=== PATIENT | male | born 1940 | race Caucasian/White ===

== ENCOUNTER 2018-02-06 13:16 | Emergency (ER) | payer MEDICARE ==
[2018-02-06 13:39] VITALS: BP 145/74
[2018-02-06] MEDS ORDERED: Lidocaine 1%* 5 ML VIAL INJ ONE (13:44)
--- NOTE | 2018-02-06 13:58 | ED ---
Laceration/Wound HPI - HPI Summary HPI Summary: 77M presents with right middle and index finger laceration today. He placed finger in a potato pluck trimmer. His last tetanus was a year ago. He is currently on Augmentin for an ear infection with his last dose last night. he takes a baby aspirin otherwise not on any blood thinners. Area continues to actively bleed. Pain is greatest in his right index finger. He has full range of motion his fingers. No numbness or tingling. no previous fracture to the area. is not diabetic. is right handed. - History of Current Complaint Pain Intensity: 2 - Additional Pertinent History Primary Care Physician: [id number] <Lizbeth Sparks - Last Filed: 02/06/18 15:18> <Kimi Khan - Last Filed: 02/06/18 18:11> - History of Current Complaint Stated Complaint: FINGER LAC Time Seen by Provider: 02/06/18 13:34 - Allergy/Home Medications Allergies/Adverse Reactions: Allergies Allergy/AdvReac Type Severity Reaction Status Date / Time No Known Allergies Allergy Verified 02/06/18 13:40 Home Medications: Home Medications Amoxicillin/Clavulanate TAB* [Augmentin TAB 875*] 1 tab PO BID 02/06/18 [ History Confirmed 02/06/18] Neomycin/Polymyxin B/Hydrocort [[id number]-Xl Ear Susp] 02/06/18 [ History] PMH/Surg Hx/FS Hx/Imm Hx Endocrine/Hematology History: Denies: Hx Anticoagulant Therapy Cardiovascular History: Reports: Hx Hypertension GI History: Reports: Hx Ulcer, Other GI Disorders - Hx of colon polyps History: Reports: Other Problems/Disorders - difficulty urinating admission Neurological History: Reports: Other Neuro Impairments/Disorders - orbital fx - diplopia/blurry vision - Surgical History Surgery Procedure, Year, and Place: [facility], [facility] Infectious Disease History: No Infectious Disease History: Denies: Traveled Outside the [place] in Last 30 Days - Family History Known Family History: Positive: Cardiac Disease - Sister - Social History Alcohol Use: Rare Substance Use Type: Reports: None Hx Tobacco Use: No Smoking Status (MU): Former Smoker <Lizbeth Sparks - Last Filed: 02/06/18 15:18> Review of Systems Negative: Fever Negative: Chest Pain Negative: Shortness Of Breath Positive: Other - finger laceration 2-3 right finger All Other Systems Reviewed And Are Negative: Yes <Lizbeth Sparks - Last Filed: 02/06/18 15:18> Physical Exam Triage Information Reviewed: Yes Vital Signs On Initial Exam: Initial Vitals Temp Pulse Resp BP Pulse Ox 98.5 F 63 20 145/74 97 02/06/18 13:35 02/06/18 13:35 02/06/18 13:35 02/06/18 13:35 02/06/18 13:35 Vital Signs Reviewed: Yes Appearance: Positive: Well-Appearing Skin: Positive: Warm, Dry, Other - 4cm by 1/2cm laceration of right middle finger distal phlanx, 1/2cm lac near end of nailbed right middle finger, multiple abrasion and lacerations next to each other on pad of right index finger 4cm by 3cm covering area Head/Face: Positive: Normal Head/Face Inspection Eyes: Positive: Normal, Conjunctiva Clear Respiratory/Lung Sounds: Positive: Clear to Auscultation, Breath Sounds Present Cardiovascular: Positive: Normal, RRR Musculoskeletal: Positive: Strength/ROM Intact - right hand, Other - good pulses , capillary refill<2 secs Neurological: Positive: Normal Psychiatric: Positive: Normal <Lizbeth Sparks - Last Filed: 02/06/18 15:18> Vital Signs On Initial Exam: Initial Vitals Temp Pulse Resp BP Pulse Ox 98.5 F 63 20 145/74 97 02/06/18 13:35 02/06/18 13:35 02/06/18 13:35 02/06/18 13:35 02/06/18 13:35 <Kimi Khan - Last Filed: 02/06/18 18:11> Procedures - Laceration/Wound Repair 1 Location: Other - right middle finger Description: Irregular Anesthesia: Digital, 1.0% Length, Depth and Shape: 4cm by 1/2cm middle distal phalanx, 1cm superficial near end of nail Irrigated w/ Saline (ccs): 1,000 Closure: Single Layer Suture Type: Prolene Number of Sutures: 5 Layer Closure?: No Sterile Dressing Applied?: Yes - telfa and coband to index finger 2 Location: Other - right index finger Description: Irregular Anesthesia: Digital, 1.0% Length, Depth and Shape: 4cm by 3cm area with 5 laceration next to each other and avulsions to the subq Irrigated w/ Saline (ccs): 1,000 Laceration/Wound Explored: no foreign body removed Closure: Single Layer Suture Type: Prolene - 4-0 Number of Sutures: 14 Layer Closure?: No Sterile Dressing Applied?: Yes - xeroform, guaze, telfa, and coband to 3rd finger <Lizbeth Sparks - Last Filed: 02/06/18 15:18> Diagnostics - Vital Signs Vital Signs Temp Pulse Resp BP Pulse Ox 02/06/18 13:35 98.5 F 63 20 145/74 97 - Radiology hand Xray Interpretation: Positive (See Comments) - IMPRESSION: Nondisplaced fracture at the tuft of the second distal phalanx. Negative for additional fracture or articular malalignment. Soft tissue swelling and subcutaneous emphysema at the second and third fingers. No compelling conspicuous foreign body however presence of gauze/bandage limits assessment. Radiology Interpretation Completed By: Radiologist <Lizbeth Sparks - Last Filed: 02/06/18 15:18> - Vital Signs Vital Signs Temp Pulse Resp BP Pulse Ox 02/06/18 13:35 98.5 F 63 20 145/74 97 <Kimi Khan - Last Filed: 02/06/18 18:11> Laceration Repair Course/Dx - Course Course Of Treatment: 77M presents with right middle and index finger laceration today. He placed finger in a potato pluck trimmer. His last tetanus was a year ago. He is currently on Augmentin for an ear infection with his last dose last night. he takes a baby aspirin otherwise not on any blood thinners. Area continues to actively bleed. Pain is greatest in his right index finger. He has full range of motion his fingers. No numbness or tingling. no previous fracture to the area. is not diabetic. is right handed. on exam has 4cm by 1 /2cm laceration of right middle finger distal phlanx that cleaned and placed 4 sutures in, 1/2cm lac near end of nailbed right middle finger that placed a stich in, multiple abrasion and lacerations (5 skin faps) next to each other on pad of right index finger 4cm by 3cm that cleaned and placed 4 sutures in. x- ray shows a tuft fracture. placed in pressure dressing as area was not able to be reapproximated completely. Gave the Keflex as patient just finished a course of Augmentin. Will have follow-up with orthopedic. patient has dx of htn that can follow up with primary about as has htn blood pressure at this visit. Patient understands agrees with plan. - Differential Dx Differental Diagnoses: Abrasion, Avulsion, Laceration <Lizbeth Sparks - Last Filed: 02/06/18 15:18> <Kimi Khan - Last Filed: 02/06/18 18:11> - Clinical Impression Provider Diagnoses: Open fracture of tuft of distal phalanx of finger, Complicated laceration of finger, Hypertension Discharge - Sign-Out/Discharge Documenting (check all that apply): Discharge/Admit/Transfer - Billing Disposition and Condition Condition: GOOD Disposition: Home <Lizbeth Sparks - Last Filed: 02/06/18 15:18> - Billing Disposition and Condition Condition: GOOD Disposition: Home <Kimi Khan - Last Filed: 02/06/18 18:11> - Discharge Plan Condition: Good Disposition: HOME Prescriptions: Cephalexin CAP* [Keflex CAP*] 500 mg PO BID #10 cap Patient Education Materials: Care For Your Stitches (ED), Finger Fracture (ED) Referrals: Luis Sosa MD [Primary Care Provider] - Sixto Salguero MD [Medical Doctor] - Additional Instructions: Keep area taped together, change dressing once a day starting Saturday Keep area clean and dry for 48 hours, first time change dressing yellow xeroform first then gauze then coband Take Tylenol or ibuprofen for pain every 6 hours elevate area Follow up with ortho Take keflex twice a day for 5 days Return to ED or primary for suture removal in 10-14 days Return to ED if develop signs of infection such as fever, spreading redness, or pus formation Attestation Statement User Type: Provider - I was available for consult. This patient was seen by the [facility]. The patient was not presented to, seen by, or examined by me. -Sabiha <Kimi Khan - Last Filed: 02/06/18 18:11>
--- NOTE | 2018-02-06 14:09 | RAD ---
INDICATION: RIGHT hand injury; laceration at the index and middle fingers. COMPARISON: No relevant prior exams available on the [facility] PACS for comparison. TECHNIQUE: AP, lateral, and oblique views RIGHT hand. REPORT: Bone density appears decreased throughout. Nondisplaced fracture at the tuft of the second distal phalanx. Negative for additional fracture or articular malalignment. Soft tissue swelling and subcutaneous emphysema at the second and third fingers. No compelling conspicuous foreign body however presence of gauze/bandage limits assessment. 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 At the metacarpal phalangeal joints and interphalangeal joints with relative paucity of osteophytosis as well as presence of periarticular osteopenia suspicious for inflammatory arthropathy. At the carpus there is more typical degenerative arthropathy most marked at the scaphoid trapezium and trapezium first metacarpal articulations were is advanced. Ulnar plus variance. 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 IMPRESSION: Nondisplaced fracture at the tuft of the second distal phalanx. Negative for additional fracture or articular malalignment. Soft tissue swelling and subcutaneous emphysema at the second and third fingers. No compelling conspicuous foreign body however presence of gauze/bandage limits assessment.
[2018-02-06] MEDS ORDERED: Lidocaine 1%* 5 ML VIAL ONE (14:22)
[2018-02-06] MEDS ORDERED: Cephalexin CAP* 500 MG PO ONE (14:22)
== END 2018-02-06 15:20 | disposition home or self-care (01) ==
LOC: UCEAST 13:16
DX: S62.660B Nondisplaced fracture of distal phalanx of right index finger, initial encounter for open fracture (principal); S61.210A Laceration without foreign body of right index finger without damage to nail, initial encounter; S61.212A Laceration without foreign body of right middle finger without damage to nail, initial encounter; I10 Essential (primary) hypertension; Z87.891 Personal history of nicotine dependence; H66.90 Otitis media, unspecified, unspecified ear; Z79.82 Long term (current) use of aspirin; W45.8XXA Other foreign body or object entering through skin, initial encounter; Y92.9 Unspecified place or not applicable
CPT/HCPCS: 12002; 99212; G0463

== ENCOUNTER 2020-08-19 13:31 | Inpatient (IN) ==
[2020-08-19 15:03] LABS: ABS Eosinophils 0.2 10^3/ul (0-0.6); ABS Lymphocytes 0.4 10^3/ul (1.0-4.8); ABS Monocytes 0.5 10^3/ul (0-0.8); ABS Neutrophils 7.1 10^3/ul (1.5-7.7); Eosinophil % 2.3 %; Hematocrit 33 % (42-52); Hemoglobin 11.3 g/dL (14.0-18.0); Lymphocyte % 5.4 %; Mean Corpuscular HGB Conc 34 g/dL (31-36); Mean Corpuscular Hemoglobin 31 pg (27-31); Mean Corpuscular Volume 91 fL (80-94); Mean Platelet Volume 6.9 fL (7.4-10.4); Platelet Count 286 10^3/uL (150-450); Red Blood Count 3.63 10^6 /uL (4.18-5.48); Red Cell Distribution Width 14 % (10-15); White Blood Count 8.3 10^3/uL (3.5-10.8)
[2020-08-19 15:17] LABS: INR 1.03 (0.82-1.09)
[2020-08-19 15:24] LABS: ALT 22 U/L (7-52); AST 24 U/L (13-39); Albumin 4.1 g/dL (3.2-5.2); Albumin/Globulin Ratio 1.5 (1-3); Alkaline Phosphatase 69 U/L (34-104); Anion Gap 7 mmol/L (2-11); BUN/Creatinine Ratio 25.7 (8-20); Blood Urea Nitrogen 28 mg/dL (6-24); CO2 Carbon Dioxide 24 mmol/L (22-32); Calcium 9.5 mg/dL (8.6-10.3); Chloride 107 mmol/L (101-111); EGFR African American 79.2 (>60); EGFR Non-African American 65.4 (>60); Globulin 2.7 g/dL (2-4); Glucose 101 mg/dL (70-100); Potassium 4.1 mmol/L (3.5-5.0); Sodium 138 mmol/L (135-145); Total Protein 6.8 g/dL (6.4-8.9)
[2020-08-19] MEDS ORDERED: Magnesium Hydroxide LIQ 30 ML UDC PO PRN (15:39)
[2020-08-19] MEDS ORDERED: Enoxaparin 40 MG/0.4 ML SYR SUBCUT ONE (15:46)
[2020-08-19] MEDS ORDERED: Senna TAB 8.6 mg TAB PO PRN (15:46)
[2020-08-19] MEDS ORDERED: Lactated Ringers 1000 ml BAG 1,000 ML IV ONE (16:04)
[2020-08-19 16:34] LABS: % Iron Saturation 13 % (15-55); Iron 58 ug/dL (50-212); Total Iron Binding Capacity 438 mcg/dL (250-450); Transferrin 313 mg/dL (203-362); Unsaturated Iron Binding < 423 ug/dL
[2020-08-19 16:56] LABS: Ferritin 17.9 ng/mL (24-336)
[2020-08-19 16:59] LABS: Folate 16.72 ng/mL (>3.99)
[2020-08-19 17:00] LABS: Vitamin B12 179 pg/mL (180-914)
[2020-08-19] MEDS ORDERED: Cyanocobalamin INJ 1,000 MCG/ML VIAL 1 ML VIAL IM ONE (18:19)
[2020-08-19] MEDS ORDERED: Iron Sucrose 20 MG/ML 5 ML VIAL IV PUSH ONE (18:19)
[2020-08-19 18:44] LABS: Magnesium 2.1 mg/dL (1.9-2.7)
[2020-08-19] MEDS ORDERED: Iron Sucrose 200 MG in NS 0.9% 100 ml IVPB ONE (21:30)
[2020-08-19] MEDS: NS 0.9% 1000 ml BAG 1,000 ML IV SCH (22:19)
[2020-08-20 11:10] LABS: BUN/Creatinine Ratio 26.6 (8-20); Calcium 8.9 mg/dL (8.6-10.3); EGFR African American 93.9 (>60); EGFR Non-African American 77.6 (>60); Magnesium 1.9 mg/dL (1.9-2.7); Potassium 3.8 mmol/L (3.5-5.0)
[2020-08-20 11:39] LABS: Vitamin D Total 25(OH) 23.9 ng/mL (20-50)
[2020-08-20] MEDS ORDERED: ceFAZolin 2 GM PREMIX 2 GM/50 ML BAG ONE (15:01)
[2020-08-20] MEDS ORDERED: Propofol 10 mg/ml 100 ML BTL 100 ML ONE (15:41)
[2020-08-20] MEDS ORDERED: Lidocaine 2% PF 5 ML VIAL ONE (15:49)
[2020-08-20] MEDS ORDERED: Bupivacaine 0.5% SDV PF 30ML VIAL ONE ×2 (15:56→18:08)
[2020-08-20] MEDS ORDERED: Rocuronium 50 mg VIAL 10 mg/ml 5 ml VIAL (50 mg) ONE (16:57)
[2020-08-20] MEDS ORDERED: HYDROmorphone 1 MG/1 ML SYRINGE ONE (17:03)
[2020-08-20] MEDS ORDERED: Propofol 10 MG/ML 20 ML BTL ONE (17:59)
[2020-08-20] MEDS ORDERED: Lidocaine 1% w EPI 1:200,000 SDV 30 ML VIAL ONE (18:08)
[2020-08-20] MEDS ORDERED: Naloxone 0.4 mg VIAL 0.4 mg/ml 1 ml VIAL IV PRN (18:30)
[2020-08-20] MEDS ORDERED: Ondansetron 4 mg VIAL 2 MG/ML 2 ml VIAL IV PRN (18:30)
[2020-08-20] MEDS ORDERED: HYDROmorphone 1 MG/1 ML SYRINGE IV PRN (18:30)
[2020-08-20] MEDS: NS 0.9% 1000 ml BAG 1,000 ML IV SCH (20:31)
[2020-08-20] MEDS: Cholecalciferol (VIT D3) 1,000 unit TAB PO SCH (21:26)
[2020-08-20] MEDS: Multivitamins/Minerals TAB PO SCH (21:26)
[2020-08-21 09:35] LABS: Hematocrit 29 % (42-52); Hemoglobin 9.8 g/dL (14.0-18.0); Mean Corpuscular HGB Conc 34 g/dL (31-36); Mean Corpuscular Hemoglobin 31 pg (27-31); Mean Corpuscular Volume 92 fL (80-94); Mean Platelet Volume 7.5 fL (7.4-10.4); Platelet Count 219 10^3/uL (150-450); Red Blood Count 3.14 10^6 /uL (4.18-5.48); Red Cell Distribution Width 14 % (10-15); White Blood Count 8.1 10^3/uL (3.5-10.8)
[2020-08-21 09:46] LABS: BUN/Creatinine Ratio 23.2 (8-20); EGFR African American 92.8 (>60); EGFR Non-African American 76.7 (>60); Magnesium 1.8 mg/dL (1.9-2.7)
[2020-08-21] MEDS ORDERED: Magnesium Sulfate IV 1GM/100ML 1 GM/100 ML BAG IV ONE (09:48)
[2020-08-21] MEDS ORDERED: Polyethylene Glycol 3350 17 GM PACKET PO PRN (12:02)
[2020-08-21] MEDS: ceFAZolin 1 GM ADVAN 1 GM in NS 0.9% 50 ML 50 ML IVPB SCH ×2 (16:09→21:15)
[2020-08-21] MEDS: Multivitamins/Minerals TAB PO SCH (16:30)
[2020-08-21] MEDS: Cholecalciferol (VIT D3) 1,000 unit TAB PO SCH (16:30)
[2020-08-22] MEDS: ceFAZolin 1 GM ADVAN 1 GM in NS 0.9% 50 ML 50 ML IVPB SCH (05:17)
[2020-08-22 11:03] LABS: ABS Eosinophils 0.1 10^3/ul (0-0.6); ABS Lymphocytes 0.6 10^3/ul (1.0-4.8); ABS Monocytes 0.8 10^3/ul (0-0.8); ABS Neutrophils 5.8 10^3/ul (1.5-7.7); Eosinophil % 1.4 %; Hematocrit 28 % (42-52); Hemoglobin 9.2 g/dL (14.0-18.0); Lymphocyte % 8.4 %; Mean Corpuscular HGB Conc 33 g/dL (31-36); Mean Corpuscular Hemoglobin 31 pg (27-31); Mean Corpuscular Volume 93 fL (80-94); Platelet Count 213 10^3/uL (150-450); Red Blood Count 2.96 10^6 /uL (4.18-5.48); Red Cell Distribution Width 15 % (10-15); White Blood Count 7.4 10^3/uL (3.5-10.8)
[2020-08-22 11:24] LABS: BUN/Creatinine Ratio 27.8 (8-20); EGFR African American 98.7 (>60); EGFR Non-African American 81.6 (>60); Magnesium 1.9 mg/dL (1.9-2.7); Potassium 3.6 mmol/L (3.5-5.0)
[2020-08-22] MEDS ORDERED: Remdesivir 5 MG/ML LIQ IV Vial 200 MG in NS 0.9% 250 ml 210 ML IV ONE (16:00)
[2020-08-22] MEDS: Cholecalciferol (VIT D3) 1,000 unit TAB PO SCH (16:40)
[2020-08-22] MEDS: Multivitamins/Minerals TAB PO SCH (16:40)
[2020-08-23 06:46] LABS: ABS Lymphocytes 0.6 10^3/ul (1.0-4.8); ABS Monocytes 0.6 10^3/ul (0-0.8); ABS Neutrophils 6.6 10^3/ul (1.5-7.7); Hematocrit 27 % (42-52); Hemoglobin 9.2 g/dL (14.0-18.0); Lymphocyte % 7.3 %; Mean Corpuscular HGB Conc 34 g/dL (31-36); Mean Corpuscular Hemoglobin 31 pg (27-31); Mean Corpuscular Volume 92 fL (80-94); Platelet Count 226 10^3/uL (150-450); Red Blood Count 2.94 10^6 /uL (4.18-5.48); Red Cell Distribution Width 14 % (10-15); White Blood Count 7.8 10^3/uL (3.5-10.8)
[2020-08-23 07:12] LABS: Albumin 3.2 g/dL (3.2-5.2); Albumin/Globulin Ratio 1.3 (1-3); BUN/Creatinine Ratio 31.7 (8-20); Calcium 9.1 mg/dL (8.6-10.3); EGFR African American 109.9 (>60); EGFR Non-African American 90.9 (>60); Globulin 2.5 g/dL (2-4); Magnesium 1.9 mg/dL (1.9-2.7); Potassium 4.4 mmol/L (3.5-5.0); Total Bilirubin 0.7 mg/dL (0.2-1.0); Total Protein 5.7 g/dL (6.4-8.9)
[2020-08-23 15:21] VITALS: BP 116/64
[2020-08-23] MEDS ORDERED: Remdesivir 5 MG/ML LIQ IV Vial 100 MG in NS 0.9% 250 ml 230 ML IV SCH (15:30)
[2020-08-23] MEDS: Multivitamins/Minerals TAB PO SCH (16:56)
[2020-08-23] MEDS: Cholecalciferol (VIT D3) 1,000 unit TAB PO SCH (16:57)
== END 2020-08-23 10:00 | DRG 480 ==
LOC: ED 13:31 → SSU 18:29 → MED 08-20 06:22
PROVIDERS: ADMIT Internal Medicine; ATTEND Internal Medicine

== ENCOUNTER 2020-08-23 08:03 | Inpatient (IN) ==
[2020-08-23] MEDS ORDERED: Magnesium Hydroxide LIQ 30 ML UDC PO PRN (17:25)
[2020-08-23] MEDS ORDERED: Senna TAB 8.6 mg TAB PO PRN (17:25)
[2020-08-24 07:05] LABS: ABS Eosinophils 0.1 10^3/ul (0-0.6); ABS Monocytes 0.5 10^3/ul (0-0.8); ABS Neutrophils 6.1 10^3/ul (1.5-7.7); Eosinophil % 1.4 %; Hematocrit 27 % (42-52); Lymphocyte % 13.1 %; Mean Corpuscular HGB Conc 34 g/dL (31-36); Mean Corpuscular Hemoglobin 31 pg (27-31); Mean Corpuscular Volume 92 fL (80-94); Mean Platelet Volume 6.9 fL (7.4-10.4); Platelet Count 263 10^3/uL (150-450); Red Blood Count 2.92 10^6 /uL (4.18-5.48); Red Cell Distribution Width 14 % (10-15); White Blood Count 7.8 10^3/uL (3.5-10.8)
[2020-08-24 07:27] LABS: Albumin 3.2 g/dL (3.2-5.2); Albumin/Globulin Ratio 1.3 (1-3); BUN/Creatinine Ratio 37.5 (8-20); Calcium 9.3 mg/dL (8.6-10.3); EGFR African American 101.3 (>60); EGFR Non-African American 83.8 (>60); Globulin 2.4 g/dL (2-4); Total Bilirubin 0.9 mg/dL (0.2-1.0); Total Protein 5.6 g/dL (6.4-8.9)
[2020-08-24] MEDS: Senna TAB 8.6 mg TAB PO SCH (21:42)
[2020-08-24] MEDS: Remdesivir 5 MG/ML LIQ IV Vial 100 MG in NS 0.9% 250 ml 230 ML IV SCH (21:43)
[2020-08-25] MEDS ORDERED: Magnesium Hydroxide LIQ 30 ML UDC PO ONE (13:00)
[2020-08-25] MEDS: Remdesivir 5 MG/ML LIQ IV Vial 100 MG in NS 0.9% 250 ml 230 ML IV SCH (21:50)
[2020-08-25] MEDS: Senna TAB 8.6 mg TAB PO SCH (21:51)
[2020-08-26] MEDS: Polyethylene Glycol 3350 17 GM PACKET PO SCH (08:39)
[2020-08-26] MEDS: Remdesivir 5 MG/ML LIQ IV Vial 100 MG in NS 0.9% 250 ml 230 ML IV SCH (21:50)
[2020-08-26] MEDS: Senna TAB 8.6 mg TAB PO SCH (21:52)
[2020-08-27] MEDS: Polyethylene Glycol 3350 17 GM PACKET PO SCH (09:03)
[2020-08-27] MEDS: Senna TAB 8.6 mg TAB PO SCH (21:05)
[2020-08-28] MEDS: Polyethylene Glycol 3350 17 GM PACKET PO SCH (08:07)
[2020-08-28] MEDS: Senna TAB 8.6 mg TAB PO SCH (20:23)
[2020-08-29] MEDS: Polyethylene Glycol 3350 17 GM PACKET PO SCH (07:52)
[2020-08-29] MEDS: Senna TAB 8.6 mg TAB PO SCH (21:21)
[2020-08-30] MEDS: Polyethylene Glycol 3350 17 GM PACKET PO SCH (08:19)
[2020-08-30 12:43] VITALS: BP 104/50
== END 2020-08-30 16:45 | disposition home health service (06) | DRG 559 ==
LOC: MED 10:00
PROVIDERS: ADMIT Physical Medicine & Rehabilitation; ATTEND Physical Medicine & Rehabilitation

== ENCOUNTER 2022-09-01 08:00 | Inpatient (IN) ==
[2022-09-01] MEDS ORDERED: Lactated Ringers 1000 ml BAG 1,000 ML IV ONE ×4 (08:19→18:00)
[2022-09-01] MEDS ORDERED: Magnesium Sulfate 2 gm BAG 2 GM/50 ML BAG IVPB ONE (08:20)
[2022-09-01 08:56] LABS: ABS Basophils 0.1 10^3/ul (0-0.2); ABS Eosinophils 0.1 10^3/ul (0-0.6); ABS Lymphocytes 0.6 10^3/ul (1.0-4.8); ABS Monocytes 0.5 10^3/ul (0-0.8); ABS Neutrophils 8.9 10^3/ul (1.5-7.7); Eosinophil % 0.5 %; Hematocrit 39 % (42-52); Hemoglobin 12.7 g/dL (14.0-18.0); Lymphocyte % 6.1 %; Mean Corpuscular HGB Conc 33 g/dL (31-36); Mean Corpuscular Hemoglobin 30 pg (27-31); Mean Corpuscular Volume 93 fL (80-94); Mean Platelet Volume 6.2 fL (7.4-10.4); Nucleated Red Blood Cells % 0.1; Platelet Count 401 10^3/uL (150-450); Red Blood Count 4.19 10^6 /uL (4.18-5.48); Red Cell Distribution Width 14 % (10-15); White Blood Count 10.1 10^3/uL (3.5-10.8)
[2022-09-01] MEDS ORDERED: dilTIAZem 30 MG TAB PO ONE ×2 (09:12→11:19)
[2022-09-01 09:50] LABS: Albumin 3.8 g/dL (3.2-5.2); Albumin/Globulin Ratio 1.5 (1-3); Calcium 9.7 mg/dL (8.6-10.3); Globulin 2.5 g/dL (2-4); Magnesium 1.9 mg/dL (1.9-2.7); Potassium 4.3 mmol/L (3.5-5.0); Total Bilirubin 1.2 mg/dL (0.2-1.0); Total Protein 6.3 g/dL (6.4-8.9); eGFR CKD-EPI 54.5 (>60)
[2022-09-01] MEDS ORDERED: Azithromycin 500 mg/250 ml NS 500 MG/250 ML BAG IVPB ONE (10:20)
[2022-09-01] MEDS ORDERED: cefTRIAXone 1 gm/50 mL D5W 1 GM/50 ML BAG IV ONE (10:20)
[2022-09-01 10:27] LABS: TSH Ultra Thyroid Stim Horm 3.33 mcIU/mL (0.34-5.60)
[2022-09-01 10:29] LABS: High Sensitivity Troponin 1 Hr 44 pg/mL (<20)
[2022-09-01] MEDS ORDERED: Metoprolol Tartrate 5 mg VIAL 5 ml VIAL (1 mg/ml) IV PRN ×2 (15:00)
[2022-09-01 15:51] LABS: Folate 14.87 ng/mL (5.90-24.80)
[2022-09-01] MEDS ORDERED: Lactated Ringers 1000 ml BAG 1,000 ML IV SCH (17:00)
[2022-09-02 06:15] LABS: ABS Eosinophils 0.2 10^3/ul (0-0.6); ABS Lymphocytes 0.7 10^3/ul (1.0-4.8); ABS Monocytes 0.6 10^3/ul (0-0.8); ABS Neutrophils 6.5 10^3/ul (1.5-7.7); Hematocrit 33 % (42-52); Hemoglobin 10.9 g/dL (14.0-18.0); Lymphocyte % 8.7 %; Mean Corpuscular HGB Conc 33 g/dL (31-36); Mean Corpuscular Hemoglobin 31 pg (27-31); Mean Corpuscular Volume 92 fL (80-94); Mean Platelet Volume 6.6 fL (7.4-10.4); Nucleated Red Blood Cells % 0.1; Platelet Count 335 10^3/uL (150-450); Red Blood Count 3.56 10^6 /uL (4.18-5.48); Red Cell Distribution Width 14 % (10-15)
[2022-09-02 06:36] LABS: Albumin/Globulin Ratio 1.7 (1-3); Calcium 8.7 mg/dL (8.6-10.3); Globulin 1.8 g/dL (2-4); Potassium 4.2 mmol/L (3.5-5.0); Total Bilirubin 0.7 mg/dL (0.2-1.0); Total Protein 4.8 g/dL (6.4-8.9); eGFR CKD-EPI 70.2 (>60)
[2022-09-02] MEDS: cefTRIAXone 1 gm/50 mL D5W 1 GM/50 ML BAG IV SCH (09:54)
[2022-09-02] MEDS ORDERED: Lactated Ringers 1000 ml BAG 1,000 ML IV ONE (11:40)
[2022-09-02] MEDS: Azithromycin 500 mg/250 ml NS 500 MG/250 ML BAG IVPB SCH (12:01)
[2022-09-02] MEDS ORDERED: Acetaminophen IV 1 GM/100ML 1,000 MG/100 ML BAG IV ONE (20:01)
[2022-09-03 06:31] LABS: ABS Basophils 0.1 10^3/ul (0-0.2); ABS Eosinophils 0.2 10^3/ul (0-0.6); ABS Lymphocytes 0.8 10^3/ul (1.0-4.8); ABS Monocytes 0.8 10^3/ul (0-0.8); ABS Neutrophils 6.6 10^3/ul (1.5-7.7); Eosinophil % 1.9 %; Hematocrit 32 % (42-52); Hemoglobin 10.5 g/dL (14.0-18.0); Lymphocyte % 9.1 %; Mean Corpuscular HGB Conc 34 g/dL (31-36); Mean Corpuscular Hemoglobin 30 pg (27-31); Mean Corpuscular Volume 91 fL (80-94); Mean Platelet Volume 6.7 fL (7.4-10.4); Platelet Count 329 10^3/uL (150-450); Red Blood Count 3.46 10^6 /uL (4.18-5.48); Red Cell Distribution Width 13 % (10-15); White Blood Count 8.4 10^3/uL (3.5-10.8)
[2022-09-03 06:48] LABS: Calcium 8.6 mg/dL (8.6-10.3); Potassium 4.3 mmol/L (3.5-5.0); eGFR CKD-EPI 68.6 (>60)
[2022-09-03] MEDS: cefTRIAXone 1 gm/50 mL D5W 1 GM/50 ML BAG IV SCH (09:22)
[2022-09-03] MEDS: Azithromycin 500 mg/250 ml NS 500 MG/250 ML BAG IVPB SCH (10:18)
[2022-09-03] MEDS ORDERED: NS 0.9% 1000 ml BAG 1,000 ML IV ONE (10:59)
[2022-09-03] MEDS ORDERED: Magnesium Hydroxide LIQ 30 ML UDC PO PRN (14:22)
[2022-09-03] MEDS: Polyethylene Glycol 3350 17 GM PACKET PO PRN (14:34)
[2022-09-03] MEDS: Senna TAB 8.6 mg TAB PO PRN (21:39)
[2022-09-04 06:17] LABS: Calcium 8.3 mg/dL (8.6-10.3); Potassium 4.3 mmol/L (3.5-5.0); eGFR CKD-EPI 72.6 (>60)
[2022-09-04] MEDS ORDERED: NS 0.9% 1000 ml BAG 1,000 ML IV ONE (07:09)
[2022-09-04] MEDS: cefTRIAXone 1 gm/50 mL D5W 1 GM/50 ML BAG IV SCH (08:35)
[2022-09-04] MEDS: Polyethylene Glycol 3350 17 GM PACKET PO PRN (14:24)
[2022-09-04] MEDS: Senna TAB 8.6 mg TAB PO PRN (21:19)
[2022-09-05 05:55] LABS: ABS Basophils 0.1 10^3/ul (0-0.2); ABS Eosinophils 0.2 10^3/ul (0-0.6); ABS Lymphocytes 0.8 10^3/ul (1.0-4.8); ABS Monocytes 0.7 10^3/ul (0-0.8); Eosinophil % 2.2 %; Hematocrit 31 % (42-52); Hemoglobin 10.6 g/dL (14.0-18.0); Lymphocyte % 10.4 %; Mean Corpuscular HGB Conc 34 g/dL (31-36); Mean Corpuscular Hemoglobin 30 pg (27-31); Mean Corpuscular Volume 89 fL (80-94); Mean Platelet Volume 6.3 fL (7.4-10.4); Platelet Count 328 10^3/uL (150-450); Red Blood Count 3.47 10^6 /uL (4.18-5.48); Red Cell Distribution Width 14 % (10-15); White Blood Count 7.7 10^3/uL (3.5-10.8)
[2022-09-05 06:12] LABS: Calcium 8.6 mg/dL (8.6-10.3); Potassium 4.7 mmol/L (3.5-5.0); eGFR CKD-EPI 71.8 (>60)
[2022-09-05] MEDS: cefTRIAXone 1 gm/50 mL D5W 1 GM/50 ML BAG IV SCH (10:11)
[2022-09-05] MEDS: Polyethylene Glycol 3350 17 GM PACKET PO PRN (12:26)
[2022-09-05 15:52] VITALS: BP 102/64
== END 2022-09-05 17:35 | disposition home health service (06) | DRG 871 ==
LOC: ED 08:00 → EDHOLD 10:52 → SUATTDRO 10:52 → EDHOLD 12:39 → MEDTELE 13:45
PROVIDERS: ADMIT Internal Medicine; ATTEND Hospitalist

== ENCOUNTER 2022-09-15 05:11 | Observation (INO) ==
[2022-09-15 06:01] LABS: ABS Lymphocytes 0.5 10^3/ul (1.0-4.8); ABS Monocytes 0.6 10^3/ul (0-0.8); ABS Neutrophils 7.6 10^3/ul (1.5-7.7); Eosinophil % 0.3 %; Hematocrit 32 % (42-52); Hemoglobin 10.6 g/dL (14.0-18.0); Lymphocyte % 6.2 %; Mean Corpuscular HGB Conc 33 g/dL (31-36); Mean Corpuscular Hemoglobin 30 pg (27-31); Mean Corpuscular Volume 90 fL (80-94); Mean Platelet Volume 6.5 fL (7.4-10.4); Platelet Count 371 10^3/uL (150-450); Red Blood Count 3.57 10^6 /uL (4.18-5.48); Red Cell Distribution Width 14 % (10-15); White Blood Count 8.8 10^3/uL (3.5-10.8)
[2022-09-15 06:10] LABS: Activated Partial Thrombo Time 32.3 seconds (26.0-38.0); INR 1.5 (0.88-1.18)
[2022-09-15 06:28] LABS: High Sens Troponin Baseline 170 pg/mL (<20)
[2022-09-15 06:33] LABS: ALT 23 U/L (7-52); AST 22 U/L (13-39); Albumin/Globulin Ratio 1.4 (1-3); Alkaline Phosphatase 91 U/L (35-149); Anion Gap 8 mmol/L (2-11); Blood Urea Nitrogen 29 mg/dL (6-24); C Reactive Protein 42.91 mg/L (<8.01); CO2 Carbon Dioxide 22 mmol/L (22-32); Calcium 8.6 mg/dL (8.6-10.3); Chloride 110 mmol/L (101-111); Creatinine, Serum 0.94 mg/dL (0.67-1.17); Digoxin < 0.3 ng/ml (0.8-2.0); Globulin 2.2 g/dL (2-4); Glucose 99 mg/dL (70-100); Potassium 3.7 mmol/L (3.5-5.0); Sodium 140 mmol/L (135-145); Total Protein 5.2 g/dL (6.4-8.9); eGFR CKD-EPI 81.9 (>60)
[2022-09-15] MEDS ORDERED: Azithromycin 500 mg/250 ml NS 500 MG/250 ML BAG IVPB ONE (07:02)
[2022-09-15] MEDS ORDERED: cefTRIAXone 1 gm/50 mL D5W 1 GM/50 ML BAG IV ONE (07:02)
[2022-09-15 07:22] LABS: High Sensitivity Troponin 1 Hr 150 pg/mL (<20)
[2022-09-15] MEDS ORDERED: Furosemide 20 mg/2 ml IV VIAL IV SLOW PU ONE (07:37)
[2022-09-15] MEDS ORDERED: Diltiazem Infusion @ 10 MG/HR - (MEDTELE ONLY, no titration) IV SCH (08:00)
[2022-09-16 07:12] LABS: Calcium 8.6 mg/dL (8.6-10.3); Creatinine, Serum 0.91 mg/dL (0.67-1.17); Magnesium 1.8 mg/dL (1.9-2.7); Potassium 3.5 mmol/L (3.5-5.0); eGFR CKD-EPI 85.2 (>60)
[2022-09-16] MEDS ORDERED: Magnesium Sulfate 2 gm BAG 2 GM/50 ML BAG IVPB ONE (08:05)
[2022-09-16] MEDS ORDERED: Potassium Chlor 20 meq TAB.ER PO ONE (08:06)
[2022-09-16] MEDS ORDERED: Metoprolol Tartrate 5 mg VIAL 5 ml VIAL (1 mg/ml) IV PRN (12:43)
[2022-09-16] MEDS ORDERED: Metoprolol Tartrate 5 mg VIAL 5 ml VIAL (1 mg/ml) IV ONE ×2 (16:11→19:39)
[2022-09-17] MEDS ORDERED: Metoprolol Tartrate 5 mg VIAL 5 ml VIAL (1 mg/ml) IV ONE (00:57)
[2022-09-17 08:53] LABS: ABS Lymphocytes 0.6 10^3/ul (1.0-4.8); ABS Monocytes 0.6 10^3/ul (0-0.8); ABS Neutrophils 7.6 10^3/ul (1.5-7.7); Eosinophil % 0.3 %; Hematocrit 36 % (42-52); Hemoglobin 11.7 g/dL (14.0-18.0); Lymphocyte % 6.9 %; Mean Corpuscular HGB Conc 33 g/dL (31-36); Mean Corpuscular Hemoglobin 29 pg (27-31); Mean Corpuscular Volume 89 fL (80-94); Mean Platelet Volume 6.6 fL (7.4-10.4); Platelet Count 425 10^3/uL (150-450); Red Cell Distribution Width 14 % (10-15); White Blood Count 8.9 10^3/uL (3.5-10.8)
[2022-09-17 09:15] LABS: Calcium 8.9 mg/dL (8.6-10.3); Creatinine, Serum 0.98 mg/dL (0.67-1.17); Potassium 4.2 mmol/L (3.5-5.0)
[2022-09-17] MEDS ORDERED: Metoprolol Tartrate 5 mg VIAL 5 ml VIAL (1 mg/ml) IV PRN (11:08)
[2022-09-17 18:20] VITALS: BP 111/71
== END 2022-09-17 18:40 | disposition home or self-care (01) ==
LOC: ED 05:11 → EDHOLD 07:06 → INTOOBSV 07:06 → SUATTDRO 11:31 → MEDTELE 16:00
PROVIDERS: ADMIT Student in an Organized Health Care Education/Training Program; ATTEND Internal Medicine Hematology & Oncology

== ENCOUNTER 2022-09-27 19:30 | Inpatient (IN) ==
[2022-09-27 19:49] LABS: ABS Lymphocytes 0.4 10^3/ul (1.0-4.8); ABS Monocytes 0.7 10^3/ul (0-0.8); ABS Neutrophils 11.5 10^3/ul (1.5-7.7); Eosinophil % 0.1 %; Hematocrit 36 % (42-52); Hemoglobin 11.4 g/dL (14.0-18.0); Lymphocyte % 2.9 %; Mean Corpuscular HGB Conc 32 g/dL (31-36); Mean Corpuscular Hemoglobin 28 pg (27-31); Mean Corpuscular Volume 90 fL (80-94); Mean Platelet Volume 6.7 fL (7.4-10.4); Nucleated Red Blood Cells % 0.1; Platelet Count 412 10^3/uL (150-450); Red Blood Count 4.02 10^6 /uL (4.18-5.48); Red Cell Distribution Width 14 % (10-15); White Blood Count 12.5 10^3/uL (3.5-10.8)
[2022-09-27] MEDS ORDERED: Furosemide 40 mg/4 ml IV VIAL IV ONE (19:50)
[2022-09-27 20:13] LABS: High Sens Troponin Baseline 211 pg/mL (<20)
[2022-09-27] MEDS ORDERED: Nitro 2% OINT (Nitroglycerin) 1 INCH/PAK TOPICAL ONE (20:19)
[2022-09-27 20:28] LABS: ALT 28 U/L (7-52); AST 32 U/L (13-39); Albumin/Globulin Ratio 1.4 (1-3); Alcohol, S < 13 mg/dL (<13); Alkaline Phosphatase 108 U/L (35-149); Anion Gap 6 mmol/L (2-11); Blood Urea Nitrogen 34 mg/dL (6-24); CO2 Carbon Dioxide 27 mmol/L (22-32); Chloride 109 mmol/L (101-111); Creatinine, Serum 0.94 mg/dL (0.67-1.17); Digoxin 0.5 ng/ml (0.8-2.0); Globulin 2.1 g/dL (2-4); Glucose 105 mg/dL (70-100); Magnesium 2.1 mg/dL (1.9-2.7); Sodium 142 mmol/L (135-145); Total Protein 5.1 g/dL (6.4-8.9); eGFR CKD-EPI 81.9 (>60)
[2022-09-27 20:58] LABS: Venous Bicarbonate HCO3 24.6 mmol/L (24-28)
[2022-09-27 21:02] LABS: PCO2 Arterial 32 mmHg (35-45); PO2 Arterial 371 mmHg (80-100)
[2022-09-27 21:19] LABS: High Sensitivity Troponin 1 Hr 215 pg/mL (<20)
[2022-09-27 21:58] LABS: PCO2 Arterial 30 mmHg (35-45); PO2 Arterial 85 mmHg (80-100)
[2022-09-27 22:04] LABS: Urine Appearance Clear; Urine Bilirubin Negative (Negative); Urine Blood Negative (Negative); Urine Color Yellow; Urine Glucose Negative (Negative); Urine Ketones Negative (Negative); Urine Nitrite Negative (Negative); Urine Protein Negative (Negative); Urine Specific Gravity 1.012 (1.002-1.030); Urine Urobilinogen Negative (Negative)
[2022-09-27 22:43] LABS: Phosphorus 3.4 mg/dL (2.5-5.0)
[2022-09-28] MEDS ORDERED: methylPREDNISolone SOD SUCC 125 mg 2 ML VIAL IV ONE (03:46)
[2022-09-28] MEDS ORDERED: Heparin DRIP 25,000 UNITS BAG 25,000 UNITS/500 ML BAG IV SCH (04:30)
[2022-09-28] MEDS ORDERED: Piperacillin/Tazobac ADVAN 3.375 GM in NS 0.9% 100 ml BAG 100 ML IV ONE (04:53)
[2022-09-28] MEDS: Albuterol/Ipratropium NEB.SOL (2.5/0.5 MG) 3 ML NEB.SOLN INH SCH ×4 (04:57→19:59)
[2022-09-28] MEDS ORDERED: Zosyn per Pharmacy NOTE FOLLOW UP SCH (05:00)
[2022-09-28 05:17] LABS: ABS Lymphocytes 0.4 10^3/ul (1.0-4.8); ABS Monocytes 0.5 10^3/ul (0-0.8); ABS Neutrophils 9.7 10^3/ul (1.5-7.7); Eosinophil % 0.3 %; Hematocrit 37 % (42-52); Hemoglobin 11.8 g/dL (14.0-18.0); Mean Corpuscular HGB Conc 32 g/dL (31-36); Mean Corpuscular Hemoglobin 29 pg (27-31); Mean Corpuscular Volume 90 fL (80-94); Mean Platelet Volume 6.7 fL (7.4-10.4); Nucleated Red Blood Cells % 0.1; Platelet Count 430 10^3/uL (150-450); Red Blood Count 4.12 10^6 /uL (4.18-5.48); Red Cell Distribution Width 14 % (10-15); White Blood Count 10.7 10^3/uL (3.5-10.8)
[2022-09-28 05:56] LABS: Calcium 6.7 mg/dL (8.6-10.3); Creatinine, Serum 0.63 mg/dL (0.67-1.17); Magnesium 1.4 mg/dL (1.9-2.7); Phosphorus 2.3 mg/dL (2.5-5.0); eGFR CKD-EPI 96.2 (>60)
[2022-09-28 06:03] LABS: Potassium 2.7 mmol/L (3.5-5.0)
[2022-09-28 08:13] LABS: Calcium 8.8 mg/dL (8.6-10.3); Creatinine, Serum 0.98 mg/dL (0.67-1.17); Magnesium 1.9 mg/dL (1.9-2.7); Phosphorus 3.1 mg/dL (2.5-5.0); Potassium 3.4 mmol/L (3.5-5.0)
[2022-09-28] MEDS: ZOSYN 3.375 GM Q8H per EXTENDED INFUSION IV SCH ×2 (09:04→18:14)
[2022-09-28] MEDS ORDERED: Potassium Chloride LIQUID 20 MEQ/15 ML LIQUID PO ONE (09:04)
[2022-09-28] MEDS ORDERED: Magnesium Sulfate 2 gm BAG 2 GM/50 ML BAG IVPB ONE (09:04)
[2022-09-28] MEDS: Heparin DRIP 25,000 UNITS BAG 25,000 UNITS/500 ML BAG IV SCH (09:05)
[2022-09-28] MEDS ORDERED: KCL 20 MEQ/100 ML IVPREMIX 20 MEQ/100 ML BAG IV ONE (09:30)
[2022-09-28] MEDS ORDERED: Furosemide 40 mg/4 ml IV VIAL IV ONE (13:10)
[2022-09-28] MEDS: methylPREDNISolone SOD SUCC 40 mg/ml 1 ml VIAL IV SCH ×2 (13:19→19:15)
[2022-09-28 14:10] LABS: PCO2 Arterial 30 mmHg (35-45); PO2 Arterial 120 mmHg (80-100)
[2022-09-28] MEDS ORDERED: Heparin 5000 UNITS/ML 1 mL VIAL ONE (16:03)
[2022-09-28] MEDS: Heparin 5000 UNITS/ML 1 mL VIAL IV SCH (16:41)
[2022-09-29] MEDS: ZOSYN 3.375 GM Q8H per EXTENDED INFUSION IV SCH ×3 (01:29→18:01)
[2022-09-29] MEDS: Albuterol/Ipratropium NEB.SOL (2.5/0.5 MG) 3 ML NEB.SOLN INH SCH ×4 (01:34→19:40)
[2022-09-29] MEDS: methylPREDNISolone SOD SUCC 40 mg/ml 1 ml VIAL IV SCH ×3 (03:50→19:16)
[2022-09-29 04:08] LABS: ABS Lymphocytes 0.2 10^3/ul (1.0-4.8); ABS Monocytes 0.5 10^3/ul (0-0.8); ABS Neutrophils 12.6 10^3/ul (1.5-7.7); Hematocrit 32 % (42-52); Hemoglobin 10.2 g/dL (14.0-18.0); Lymphocyte % 1.4 %; Mean Corpuscular HGB Conc 32 g/dL (31-36); Mean Corpuscular Hemoglobin 28 pg (27-31); Mean Corpuscular Volume 88 fL (80-94); Mean Platelet Volume 6.9 fL (7.4-10.4); Platelet Count 351 10^3/uL (150-450); Red Blood Count 3.66 10^6 /uL (4.18-5.48); Red Cell Distribution Width 14 % (10-15); White Blood Count 13.3 10^3/uL (3.5-10.8)
[2022-09-29 04:30] LABS: Albumin 2.3 g/dL (3.2-5.2); Albumin/Globulin Ratio 1.5 (1-3); Calcium 7.2 mg/dL (8.6-10.3); Creatinine, Serum 1.01 mg/dL (0.67-1.17); Globulin 1.5 g/dL (2-4); Magnesium 1.8 mg/dL (1.9-2.7); Potassium 3.2 mmol/L (3.5-5.0); Total Bilirubin 0.7 mg/dL (0.2-1.0); Total Protein 3.8 g/dL (6.4-8.9); eGFR CKD-EPI 75.2 (>60)
[2022-09-29] MEDS: Heparin 5000 UNITS/ML 1 mL VIAL IV SCH (04:35)
[2022-09-29] MEDS ORDERED: Magnesium Sulfate 2 gm BAG 2 GM/50 ML BAG IVPB ONE (04:59)
[2022-09-29] MEDS: KCL 20 MEQ/100 ML IVPREMIX 20 MEQ/100 ML BAG IV SCH ×3 (06:40→11:27)
[2022-09-29] MEDS: Heparin DRIP 25,000 UNITS BAG 25,000 UNITS/500 ML BAG IV SCH (08:46)
[2022-09-30] MEDS: Albuterol/Ipratropium NEB.SOL (2.5/0.5 MG) 3 ML NEB.SOLN INH SCH ×4 (01:13→19:25)
[2022-09-30] MEDS: ZOSYN 3.375 GM Q8H per EXTENDED INFUSION IV SCH ×3 (02:16→18:01)
[2022-09-30 04:49] LABS: ABS Lymphocytes 0.1 10^3/ul (1.0-4.8); ABS Monocytes 0.5 10^3/ul (0-0.8); ABS Neutrophils 14.7 10^3/ul (1.5-7.7); Hematocrit 32 % (42-52); Hemoglobin 9.9 g/dL (14.0-18.0); Lymphocyte % 0.9 %; Mean Corpuscular HGB Conc 31 g/dL (31-36); Mean Corpuscular Hemoglobin 27 pg (27-31); Mean Corpuscular Volume 87 fL (80-94); Mean Platelet Volume 6.7 fL (7.4-10.4); Platelet Count 326 10^3/uL (150-450); Red Blood Count 3.64 10^6 /uL (4.18-5.48); Red Cell Distribution Width 15 % (10-15); White Blood Count 15.4 10^3/uL (3.5-10.8)
[2022-09-30] MEDS: methylPREDNISolone SOD SUCC 40 mg/ml 1 ml VIAL IV SCH ×3 (04:58→20:05)
[2022-09-30 05:21] LABS: Albumin 2.6 g/dL (3.2-5.2); Albumin/Globulin Ratio 1.2 (1-3); Calcium 8.4 mg/dL (8.6-10.3); Creatinine, Serum 0.92 mg/dL (0.67-1.17); Globulin 2.1 g/dL (2-4); Phosphorus 2.9 mg/dL (2.5-5.0); Total Bilirubin 0.8 mg/dL (0.2-1.0); Total Protein 4.7 g/dL (6.4-8.9); eGFR CKD-EPI 84.1 (>60)
[2022-09-30] MEDS ORDERED: Albuterol/Ipratropium NEB.SOL (2.5/0.5 MG) 3 ML NEB.SOLN INH ONE (10:40)
[2022-10-01] MEDS: ZOSYN 3.375 GM Q8H per EXTENDED INFUSION IV SCH ×3 (02:06→18:20)
[2022-10-01] MEDS: methylPREDNISolone SOD SUCC 40 mg/ml 1 ml VIAL IV SCH ×3 (04:23→20:57)
[2022-10-01] MEDS ORDERED: Albuterol/Ipratropium NEB.SOL (2.5/0.5 MG) 3 ML NEB.SOLN INH SCH (07:00)
[2022-10-01 07:04] LABS: ABS Lymphocytes 0.2 10^3/ul (1.0-4.8); ABS Monocytes 0.5 10^3/ul (0-0.8); ABS Neutrophils 13.7 10^3/ul (1.5-7.7); Hematocrit 34 % (42-52); Hemoglobin 10.7 g/dL (14.0-18.0); Lymphocyte % 1.2 %; Mean Corpuscular HGB Conc 32 g/dL (31-36); Mean Corpuscular Hemoglobin 28 pg (27-31); Mean Corpuscular Volume 88 fL (80-94); Mean Platelet Volume 7.3 fL (7.4-10.4); Platelet Count 318 10^3/uL (150-450); Red Cell Distribution Width 14 % (10-15); White Blood Count 14.3 10^3/uL (3.5-10.8)
[2022-10-01 07:15] LABS: Albumin 2.8 g/dL (3.2-5.2); Albumin/Globulin Ratio 1.4 (1-3); Calcium 9.1 mg/dL (8.6-10.3); Creatinine, Serum 0.88 mg/dL (0.67-1.17); Magnesium 2.1 mg/dL (1.9-2.7); Phosphorus 2.7 mg/dL (2.5-5.0); Potassium 4.4 mmol/L (3.5-5.0); Total Bilirubin 0.9 mg/dL (0.2-1.0); Total Protein 4.8 g/dL (6.4-8.9); eGFR CKD-EPI 86.9 (>60)
[2022-10-01] MEDS: Albuterol/Ipratropium NEB.SOL (2.5/0.5 MG) 3 ML NEB.SOLN INH SCH ×2 (14:43→19:44)
[2022-10-02] MEDS: ZOSYN 3.375 GM Q8H per EXTENDED INFUSION IV SCH ×3 (01:59→17:53)
[2022-10-02] MEDS: methylPREDNISolone SOD SUCC 40 mg/ml 1 ml VIAL IV SCH ×4 (04:28→20:38)
[2022-10-02] MEDS: Albuterol/Ipratropium NEB.SOL (2.5/0.5 MG) 3 ML NEB.SOLN INH SCH ×3 (07:44→19:14)
[2022-10-02] MEDS ORDERED: Furosemide 20 mg/2 ml IV VIAL IV ONE (11:34)
[2022-10-02 13:17] LABS: Rapid COVID-19 Molecular Undetected (Undetected)
[2022-10-03] MEDS: ZOSYN 3.375 GM Q8H per EXTENDED INFUSION IV SCH ×3 (02:11→17:40)
[2022-10-03 06:55] LABS: ABS Lymphocytes 0.3 10^3/ul (1.0-4.8); ABS Monocytes 0.6 10^3/ul (0-0.8); ABS Neutrophils 13.6 10^3/ul (1.5-7.7); Hematocrit 33 % (42-52); Hemoglobin 10.6 g/dL (14.0-18.0); Lymphocyte % 1.8 %; Mean Corpuscular HGB Conc 32 g/dL (31-36); Mean Corpuscular Hemoglobin 28 pg (27-31); Mean Corpuscular Volume 87 fL (80-94); Mean Platelet Volume 7.3 fL (7.4-10.4); Platelet Count 265 10^3/uL (150-450); Red Blood Count 3.77 10^6 /uL (4.18-5.48); Red Cell Distribution Width 14 % (10-15); White Blood Count 14.5 10^3/uL (3.5-10.8)
[2022-10-03 07:10] LABS: Albumin 2.7 g/dL (3.2-5.2); Calcium 8.9 mg/dL (8.6-10.3); Potassium 4.4 mmol/L (3.5-5.0); Total Bilirubin 0.9 mg/dL (0.2-1.0)
[2022-10-03 07:16] LABS: Albumin/Globulin Ratio 1.3 (1-3); Creatinine, Serum 0.91 mg/dL (0.67-1.17); Globulin 2.1 g/dL (2-4); Total Protein 4.8 g/dL (6.4-8.9); eGFR CKD-EPI 85.2 (>60)
[2022-10-03] MEDS: Albuterol/Ipratropium NEB.SOL (2.5/0.5 MG) 3 ML NEB.SOLN INH SCH (07:16)
[2022-10-03] MEDS: Levalbuterol 1.25MG/0.5ML NEB.SOL INH SCH ×3 (10:55→20:19)
[2022-10-03] MEDS: Tiotropium Brom/Olodaterol MDI INH SCH (15:50)
[2022-10-04] MEDS: ZOSYN 3.375 GM Q8H per EXTENDED INFUSION IV SCH ×3 (01:37→19:57)
[2022-10-04] MEDS: Levalbuterol 1.25MG/0.5ML NEB.SOL INH SCH ×4 (08:07→19:47)
[2022-10-04] MEDS: Tiotropium Brom/Olodaterol MDI INH SCH (08:09)
[2022-10-04] MEDS: methylPREDNISolone SOD SUCC 40 mg/ml 1 ml VIAL IV SCH ×2 (10:04→19:57)
[2022-10-04] MEDS ORDERED: Senna TAB 8.6 mg TAB PO PRN (23:02)
[2022-10-05] MEDS: methylPREDNISolone SOD SUCC 40 mg/ml 1 ml VIAL IV SCH ×3 (02:13→17:10)
[2022-10-05] MEDS: ZOSYN 3.375 GM Q8H per EXTENDED INFUSION IV SCH ×3 (02:14→17:10)
[2022-10-05] MEDS: Polyethylene Glycol 3350 17 GM PACKET PO PRN (03:10)
[2022-10-05] MEDS: Levalbuterol 1.25MG/0.5ML NEB.SOL INH SCH ×6 (07:47→23:16)
[2022-10-05] MEDS: Tiotropium Brom/Olodaterol MDI INH SCH (07:47)
[2022-10-05 08:28] LABS: Hematocrit 39 % (42-52); Hemoglobin 11.8 g/dL (14.0-18.0); Mean Corpuscular HGB Conc 31 g/dL (31-36); Mean Corpuscular Hemoglobin 28 pg (27-31); Mean Corpuscular Volume 91 fL (80-94); Red Blood Count 4.22 10^6 /uL (4.18-5.48); Red Cell Distribution Width 15 % (10-15)
[2022-10-05] MEDS ORDERED: Furosemide 20 mg/2 ml IV VIAL IV SLOW PU ONE (08:29)
[2022-10-05 09:11] LABS: Calcium 8.7 mg/dL (8.6-10.3); Magnesium 1.9 mg/dL (1.9-2.7); Potassium 4.6 mmol/L (3.5-5.0)
[2022-10-05 09:17] LABS: Creatinine, Serum 0.81 mg/dL (0.67-1.17); Phosphorus 3.2 mg/dL (2.5-5.0); eGFR CKD-EPI 89.1 (>60)
[2022-10-05 09:46] LABS: ABS Lymphocytes 0.2 10^3/ul (1.0-4.8); ABS Monocytes 0.3 10^3/ul (0-0.8); ABS Neutrophils 13.4 10^3/ul (1.5-7.7); Eosinophil % 0.1 %; Lymphocyte % 1.7 %; Nucleated Red Blood Cells % 0.1; Platelet Count Platelets clumped. 10^3/uL (150-450)
[2022-10-05 12:23] LABS: PCO2 Arterial 33 mmHg (35-45); PO2 Arterial 144 mmHg (80-100)
[2022-10-05] MEDS ORDERED: Lactated Ringers 1000 ml BAG 500 ML IV ONE (13:42)
[2022-10-05] MEDS: Nystatin SUSPENSION 100,000 UNITS/ML UDC PO SCH ×3 (14:21→20:20)
[2022-10-05] MEDS ORDERED: Albuterol 2.5mg/3 ml (0.083%) NEB.SOLN INH PRN (15:33)
[2022-10-05] MEDS ORDERED: Albuterol/Ipratropium NEB.SOL (2.5/0.5 MG) 3 ML NEB.SOLN INH SCH (16:00)
[2022-10-05] MEDS ORDERED: Furosemide 40 mg/4 ml IV VIAL IV SLOW PU ONE (16:19)
[2022-10-05 16:48] LABS: CO2 Carbon Dioxide 19 mmol/L (22-32); Calcium 8.8 mg/dL (8.6-10.3); Chloride 102 mmol/L (101-111); Sodium 135 mmol/L (135-145)
[2022-10-05 16:48] LABS: ABS Lymphocytes 0.1 10^3/ul (1.0-4.8); ABS Monocytes 0.5 10^3/ul (0-0.8); ABS Neutrophils 13.3 10^3/ul (1.5-7.7); Hematocrit 38 % (42-52); Hemoglobin 11.7 g/dL (14.0-18.0); Lymphocyte % 0.6 %; Mean Corpuscular HGB Conc 31 g/dL (31-36); Mean Corpuscular Hemoglobin 27 pg (27-31); Mean Corpuscular Volume 89 fL (80-94); Mean Platelet Volume 7.2 fL (7.4-10.4); Platelet Count 255 10^3/uL (150-450); Red Blood Count 4.27 10^6 /uL (4.18-5.48); Red Cell Distribution Width 15 % (10-15); White Blood Count 13.9 10^3/uL (3.5-10.8)
[2022-10-05 16:54] LABS: Anion Gap 14 mmol/L (2-11); Blood Urea Nitrogen 32 mg/dL (6-24); Creatinine, Serum 0.88 mg/dL (0.67-1.17); Glucose 118 mg/dL (70-100); eGFR CKD-EPI 86.9 (>60)
[2022-10-05 18:03] LABS: Phosphorus 2.7 mg/dL (2.5-5.0)
[2022-10-05] MEDS: Mometasone/Formoter 200/5 MDI INH SCH ×2 (19:00→20:24)
[2022-10-06] MEDS: methylPREDNISolone SOD SUCC 40 mg/ml 1 ml VIAL IV SCH ×3 (02:03→17:54)
[2022-10-06] MEDS: ZOSYN 3.375 GM Q8H per EXTENDED INFUSION IV SCH ×3 (02:03→17:54)
[2022-10-06] MEDS: Levalbuterol 1.25MG/0.5ML NEB.SOL INH SCH ×4 (03:25→19:36)
[2022-10-06 05:11] LABS: ABS Basophils 0.1 10^3/ul (0-0.2); ABS Lymphocytes 0.2 10^3/ul (1.0-4.8); ABS Monocytes 0.6 10^3/ul (0-0.8); ABS Neutrophils 15.9 10^3/ul (1.5-7.7); Eosinophil % 0.1 %; Hematocrit 32 % (42-52); Hemoglobin 10.2 g/dL (14.0-18.0); Lymphocyte % 1.1 %; Mean Corpuscular HGB Conc 32 g/dL (31-36); Mean Corpuscular Hemoglobin 28 pg (27-31); Mean Corpuscular Volume 86 fL (80-94); Mean Platelet Volume 7.4 fL (7.4-10.4); Platelet Count 204 10^3/uL (150-450); Red Blood Count 3.71 10^6 /uL (4.18-5.48); Red Cell Distribution Width 15 % (10-15); White Blood Count 16.8 10^3/uL (3.5-10.8)
[2022-10-06 05:51] LABS: Calcium 8.6 mg/dL (8.6-10.3); Creatinine, Serum 0.88 mg/dL (0.67-1.17); Magnesium 1.8 mg/dL (1.9-2.7); eGFR CKD-EPI 86.9 (>60)
[2022-10-06] MEDS ORDERED: Magnesium Sulfate 2 gm BAG 2 GM/50 ML BAG IVPB ONE (06:01)
[2022-10-06] MEDS ORDERED: Digoxin IV 0.5 MG/2 ML AMP (0.25 MG/ML) IV SLOW PU ONE ×3 (07:13→19:28)
[2022-10-06] MEDS: Mometasone/Formoter 200/5 MDI INH SCH ×2 (08:09→19:39)
[2022-10-06] MEDS: Nystatin SUSPENSION 100,000 UNITS/ML UDC PO SCH ×4 (08:25→20:08)
[2022-10-06] MEDS: Polyethylene Glycol 3350 17 GM PACKET PO PRN (17:54)
[2022-10-07] MEDS: Levalbuterol 1.25MG/0.5ML NEB.SOL INH SCH ×4 (00:17→19:42)
[2022-10-07] MEDS ORDERED: Metoprolol Tartrate 5 mg VIAL 5 ml VIAL (1 mg/ml) IV ONE ×2 (00:46→02:10)
[2022-10-07] MEDS: ZOSYN 3.375 GM Q8H per EXTENDED INFUSION IV SCH ×3 (02:00→17:55)
[2022-10-07] MEDS: methylPREDNISolone SOD SUCC 40 mg/ml 1 ml VIAL IV SCH ×3 (02:01→17:55)
[2022-10-07 04:29] LABS: ABS Lymphocytes 0.1 10^3/ul (1.0-4.8); ABS Monocytes 0.5 10^3/ul (0-0.8); Eosinophil % 0.2 %; Hematocrit 32 % (42-52); Hemoglobin 10.2 g/dL (14.0-18.0); Lymphocyte % 0.7 %; Mean Corpuscular HGB Conc 32 g/dL (31-36); Mean Corpuscular Hemoglobin 28 pg (27-31); Mean Corpuscular Volume 88 fL (80-94); Mean Platelet Volume 7.7 fL (7.4-10.4); Platelet Count 186 10^3/uL (150-450); Red Blood Count 3.66 10^6 /uL (4.18-5.48); Red Cell Distribution Width 15 % (10-15); White Blood Count 16.7 10^3/uL (3.5-10.8)
[2022-10-07 05:10] LABS: Calcium 7.8 mg/dL (8.6-10.3); Creatinine, Serum 0.76 mg/dL (0.67-1.17); Magnesium 1.9 mg/dL (1.9-2.7); Potassium 3.9 mmol/L (3.5-5.0); eGFR CKD-EPI 90.9 (>60)
[2022-10-07 05:29] LABS: Digoxin 4.4 ng/ml (0.8-2.0)
[2022-10-07] MEDS: Mometasone/Formoter 200/5 MDI INH SCH ×2 (07:23→19:43)
[2022-10-07] MEDS ORDERED: Furosemide 20 mg/2 ml IV VIAL IV SLOW PU ONE (10:00)
[2022-10-07] MEDS: Nystatin SUSPENSION 100,000 UNITS/ML UDC PO SCH ×4 (10:01→22:10)
[2022-10-08] MEDS: ZOSYN 3.375 GM Q8H per EXTENDED INFUSION IV SCH (02:22)
[2022-10-08] MEDS: methylPREDNISolone SOD SUCC 40 mg/ml 1 ml VIAL IV SCH ×3 (02:25→18:02)
[2022-10-08 06:08] LABS: ABS Lymphocytes 0.1 10^3/ul (1.0-4.8); ABS Monocytes 0.4 10^3/ul (0-0.8); ABS Neutrophils 15.7 10^3/ul (1.5-7.7); Hematocrit 32 % (42-52); Hemoglobin 10.4 g/dL (14.0-18.0); Lymphocyte % 0.9 %; Mean Corpuscular HGB Conc 32 g/dL (31-36); Mean Corpuscular Hemoglobin 28 pg (27-31); Mean Corpuscular Volume 87 fL (80-94); Mean Platelet Volume 7.3 fL (7.4-10.4); Platelet Count 184 10^3/uL (150-450); Red Blood Count 3.69 10^6 /uL (4.18-5.48); Red Cell Distribution Width 14 % (10-15); White Blood Count 16.3 10^3/uL (3.5-10.8)
[2022-10-08 06:36] LABS: Calcium 8.5 mg/dL (8.6-10.3); Creatinine, Serum 0.72 mg/dL (0.67-1.17); eGFR CKD-EPI 92.4 (>60)
[2022-10-08] MEDS: Mometasone/Formoter 200/5 MDI INH SCH ×2 (06:57→19:29)
[2022-10-08] MEDS: Levalbuterol 1.25MG/0.5ML NEB.SOL INH SCH ×3 (06:57→19:30)
[2022-10-08] MEDS: Nystatin SUSPENSION 100,000 UNITS/ML UDC PO SCH ×4 (09:00→21:14)
[2022-10-08 11:04] LABS: PSA Screening Total 0.123 ng/mL (0-4.000)
[2022-10-08] MEDS ORDERED: Ondansetron 4 mg VIAL 2 MG/ML 2 ml VIAL IV PRN (16:56)
[2022-10-08] MEDS ORDERED: Morphine ORAL CONCENTRATE 5 MG/0.25 ML ORAL.SYRIN PO PRN (16:56)
[2022-10-08] MEDS ORDERED: Atropine 1% (ORAL/SL) 15 ML BTL SL PRN (16:56)
[2022-10-08] MEDS: Morphine 2 MG/ML SYRINGE IV PRN (22:28)
[2022-10-09] MEDS ORDERED: Metoprolol Tartrate 5 mg VIAL 5 ml VIAL (1 mg/ml) IV PRN (01:37)
[2022-10-09] MEDS: Morphine 2 MG/ML SYRINGE IV PRN ×4 (02:16→13:15)
[2022-10-09] MEDS: methylPREDNISolone SOD SUCC 40 mg/ml 1 ml VIAL IV SCH ×2 (02:18→11:27)
[2022-10-09] MEDS ORDERED: Lorazepam PYXIS KEY PRN (02:38)
[2022-10-09] MEDS ORDERED: Metoprolol Tartrate 5 mg VIAL 5 ml VIAL (1 mg/ml) IV ONE (02:39)
[2022-10-09] MEDS: LORazepam 2 mg VIAL 1 ml IV PUSH PRN ×2 (04:10→12:13)
[2022-10-09] MEDS: Mometasone/Formoter 200/5 MDI INH SCH (07:00)
[2022-10-09] MEDS: Levalbuterol 1.25MG/0.5ML NEB.SOL INH SCH (07:00)
[2022-10-09] MEDS: Nystatin SUSPENSION 100,000 UNITS/ML UDC PO SCH ×2 (09:49→12:15)
[2022-10-09] MEDS ORDERED: Morphine PCA ADULT 5 MG/ML 30 ML PCA SCH ×2 (12:00→13:48)
[2022-10-09] MEDS ORDERED: Morphine 2 MG/ML SYRINGE IV ONE (13:47)
[2022-10-09 14:51] VITALS: BP 64/47
[2022-10-10 13:28] LABS: Fungitell Qualitative Result Negative (Negative); Fungitell Quantitative Value <31 pg/mL (<60 pg/mL)
== END 2022-10-09 14:51 | disposition expired | DRG 196 ==
LOC: ED 19:30 → SUATTDRO 22:18 → EDHOLD 22:18 → ICU 23:33 → MEDTELE 09-30 15:07 → ICU 10-05 16:00
PROVIDERS: ADMIT Surgery Surgical Critical Care; ATTEND Internal Medicine